=== PATIENT | male | born 1960 | race African-American/Black ===

== ENCOUNTER 2018-12-04 18:30 | Emergency (ER) | payer OTHER ==
[2018-12-04 18:59] VITALS: RESP 18
--- NOTE | 2018-12-04 19:17 | ED ---
General Adult HPI - General Chief complaint: Abdominal Pain Stated complaint: left side pain Time Seen by Provider: 12/04/18 19:00 Source: patient Mode of arrival: ambulatory Limitations: no limitations - History of Present Illness Initial comments: Patient is a 58 year old male who presents from [facility] where he is being treated for cocain and alcohol use, who presents with a CC of left abdominal and flank pain x 2 days. he states that he has had diarrhea since the second day of being at [facility]. he states that at this point, his withdrawal symptoms are better and he doesn't think that is contributing. He cannot identify inciting incident, he denies anyone else similar symptoms, there are no aggravating or alleviating factors. He denies any blood in his stool, and says he is not having any difficulty urinating. He denies any fevers. - Related Data Previous Rx's Medication Instructions Recorded Dicyclomine [Bentyl] 20 mg PO TID PRN #12 tablet 12/04/18 Ibuprofen [Motrin] 800 mg PO TID #20 tab 12/04/18 Allergies Allergy/AdvReac Type Severity Reaction Status Date / Time No Known Allergies Allergy Verified 12/04/18 18:59 Review of Systems ROS Statement: Those systems with pertinent positive or pertinent negative responses have been documented in the HPI. ROS Other: All systems not noted in ROS Statement are negative. Gastrointestinal: Reports: abdominal pain, diarrhea Past Medical History Past Medical History: No Reported History History of Any Multi-Drug Resistant Organisms: None Reported Past Surgical History: No Surgical Hx Reported Past Psychological History: No Psychological Hx Reported Smoking Status: Current every day smoker Past Alcohol Use History: Occasional Past Drug Use History: Cocaine General Exam Limitations: no limitations General appearance: alert, in no apparent distress Head exam: Present: atraumatic, normocephalic Eye exam: Present: normal appearance ENT exam: Present: normal exam Neck exam: Present: normal inspection Respiratory exam: Present: normal lung sounds bilaterally. Absent: respiratory distress, wheezes Cardiovascular Exam: Present: regular rate, normal rhythm GI/Abdominal exam: Present: soft. Absent: distended, tenderness Rectal exam: Present: deferred Extremities exam: Present: normal inspection Back exam: Present: normal inspection, CVA tenderness (L). Absent: CVA tenderness (R) Neurological exam: Present: alert, oriented X3 Psychiatric exam: Present: normal affect, normal mood Skin exam: Present: warm, dry, intact Course Vital Signs 12/04/18 12/04/18 12/04/18 18:55 19:25 20:37 Temperature 97.9 F 98 F Pulse Rate 63 64 60 Respiratory 18 18 18 Rate Blood Pressure 123/78 128/87 140/96 O2 Sat by Pulse 100 95 99 Oximetry Medical Decision Making - Medical Decision Making Patient presents with a chief complaint of left-sided flank and abdominal pain. On initial evaluation, patient is in no acute distress. Patient evaluated basic labs including liver profile and urinalysis. Patient will have a computed tomography scan of the abdomen and pelvis and urinalysis to decide whether with or without contrast. Lab evaluation this patient is unremarkable. Patient was sent for computed tomography scan of the abdomen and pelvis with IV contrast. CT does not show any acute pathology. Her evaluation, patient appears calm and stable. He is stable for discharge. Patient prescribed Bentyl and Motrin. He was instructed to follow up with primary care in 1-2 days, return to the ED if symptoms worsen or change. - Lab Data Result diagrams: 12/04/18 19:20 12/04/18 19:20 Lab Results 12/04/18 12/04/18 12/04/18 Range/Units 19:20 19:20 Unknown WBC 6.5 (3.8-10.6) k/uL RBC 4.53 (4.30-5.90) m/uL Hgb 13.8 (13.0-17.5) gm/dL Hct 43.7 (39.0-53.0) % MCV 96.4 (80.0-100.0) fL MCH 30.4 (25.0-35.0) pg MCHC 31.5 (31.0-37.0) g/dL RDW 15.6 H (11.5-15.5) % Plt Count 245 (150-450) k/uL Neutrophils % 63 % Lymphocytes % 23 % Monocytes % 5 % Eosinophils % 6 % Basophils % 1 % Neutrophils # 4.1 (1.3-7.7) k/uL Lymphocytes # 1.5 (1.0-4.8) k/uL Monocytes # 0.3 (0-1.0) k/uL Eosinophils # 0.4 (0-0.7) k/uL Basophils # 0.1 (0-0.2) k/uL Sodium 142 (137-145) mmol/L Potassium 4.5 (3.5-5.1) mmol/L Chloride 112 H (98-107) mmol/L Carbon Dioxide 25 (22-30) mmol/L Anion Gap 5 mmol/L BUN 18 (9-20) mg/dL Creatinine 1.07 (0.66-1.25) mg/dL Est GFR (CKD-EPI)AfAm 88 (>60 ml/min/1.73 sqM) Est GFR (CKD-EPI)NonAf 76 (>60 ml/min/1.73 sqM) Glucose 105 H (74-99) mg/dL Calcium 9.3 (8.4-10.2) mg/dL Total Bilirubin 0.2 (0.2-1.3) mg/dL AST 24 (17-59) U/L ALT 12 L (21-72) U/L Alkaline Phosphatase 82 (38-126) U/L Total Protein 6.9 (6.3-8.2) g/dL Albumin 3.9 (3.5-5.0) g/dL Urine Color Yellow Urine Appearance Clear (Clear) Urine pH 6.5 (5.0-8.0) Ur Specific [place] 1.023 (1.001-1.035) Urine Protein Negative (Negative) Urine Glucose (UA) Negative (Negative) Urine Ketones Negative (Negative) Urine Blood Negative (Negative) Urine Nitrite Negative (Negative) Urine Bilirubin Negative (Negative) Urine Urobilinogen <2.0 (<2.0) mg/dL Ur Leukocyte Esterase Negative (Negative) Disposition Clinical Impression: Flank pain, Abdominal pain Disposition: HOME SELF-CARE Condition: Good Instructions (If sedation given, give patient instructions): Abdominal Pain (ED) Prescriptions: Dicyclomine [Bentyl] 20 mg PO TID PRN #12 tablet PRN Reason: Diarrhea Ibuprofen [Motrin] 800 mg PO TID #20 tab Is patient prescribed a controlled substance at d/c from ED?: No Referrals: None,Stated [Primary Care Provider] - 1-2 days Karen West MD [STAFF PHYSICIAN] - 1-2 days
[2018-12-04 19:27] LABS: Appearance,Urine Clear (Clear); Bilirubin,Urine Negative (Negative); Blood,Urine Negative (Negative); Color,Urine Yellow; Glucose,Urine (UA) Negative (Negative); Ketones,Urine Negative (Negative); Leukocyte Esterase,Urine Negative (Negative); Nitrite,Urine Negative (Negative); PH, Urine 6.5 (5.0-8.0); Protein,Urine Negative (Negative); Specific Gravity,Urine 1.023 (1.001-1.035); Urobilinogen,Urine <2.0 mg/dL (<2.0)
[2018-12-04 19:27] LABS: Basophils # (A) 0.1 k/uL (0-0.2); Basophils % (A) 1 %; Eosinophils # (A) 0.4 k/uL (0-0.7); Eosinophils % (A) 6 %; HCT 43.7 % (39.0-53.0); HGB 13.8 gm/dL (13.0-17.5); Lymphocytes # (A) 1.5 k/uL (1.0-4.8); Lymphocytes % (A) 23 %; MCH 30.4 pg (25.0-35.0); MCHC 31.5 g/dL (31.0-37.0); MCV 96.4 fL (80.0-100.0); Mean Platelet Volume 6.8; Monocytes # (A) 0.3 k/uL (0-1.0); Monocytes % (A) 5 %; Neutrophils # (A) 4.1 k/uL (1.3-7.7); Neutrophils % (A) 63 %; Platelet Count 245 k/uL (150-450); RBC 4.53 m/uL (4.30-5.90); RDW 15.6 % (11.5-15.5); WBC 6.5 k/uL (3.8-10.6)
[2018-12-04 19:38] LABS: Albumin 3.9 g/dL (3.5-5.0); Calcium 9.3 mg/dL (8.4-10.2); Potassium 4.5 mmol/L (3.5-5.1); Total Bilirubin 0.2 mg/dL (0.2-1.3); Total Protein 6.9 g/dL (6.3-8.2)
[2018-12-04] MEDS ORDERED: DICYCLOMINE 20 MG TAB PO STA (19:54)
[2018-12-04] MEDS ORDERED: KETOROLAC 30 MG/ML 1 ML VIAL IVP STA (19:54)
--- NOTE | 2018-12-04 20:38 | CT ---
EXAMINATION TYPE: CT abdomen pelvis w con DATE OF EXAM: 12/04/2018 COMPARISON: None. HISTORY: LT side abdomen pain, radiating to back. CT DLP: 641 mGycm, Automated Exposure Control for Dose Reduction was Utilized. CONTRAST: CT scan of the abdomen and pelvis is performed without oral but with IV Contrast, patient injected wi th 100 mL of Isovue 300. FINDINGS: LUNG BASES: Dependent atelectasis is present bilaterally. LIVER/GB: Contracted gallbladder. PANCREAS: No significant abnormality is seen. SPLEEN: No significant abnormality is seen. ADRENALS: No significant abnormality is seen. KIDNEYS: A simple appearing 3.3 cm cyst laterally lower pole of the left kidney is noted axial image 34 series 301. Scattered pelvic phleboliths are present bilaterally. BOWEL: Patient has little intra-abdominal fat along with lack of enteric contrast makes evaluation of bowel suboptimal. There is no suspicious small or large bowel dilatation. Appendix WITHIN normal lewis its from base of cecum. PROSTATE/SEMINAL VESICLES: No gross abnormality seen. LYMPH NODES: No greater than 1cm abdominal or pelvic lymph nodes are appreciated. OSSEOUS STRUCTURES: Spine is straightened with multilevel disc desiccation L3-L4 and L4-L5 levels wit h mild disc space narrowing and moderate anterior spurring. There is moderate to advanced disc space narrowing with endplate sclerosis and moderate spurring L5-S1 level. There is mild narrowing and spur ring in both hip joints. Facet arthropathy mid to lower lumbar spine is present. OTHER: Mild to moderate calcified plaque of the aorta extends into branch vessels. IMPRESSION: No significant acute finding is seen to account for patient's clinical symptoms of left- sided pain into back.
[2018-12-04 20:39] VITALS: BP 140/96; PULSE 60; TEMP 98
== END 2018-12-04 21:10 | disposition home or self-care (01) ==
LOC: EC 18:30
DX: R10.9 Unspecified abdominal pain (principal); R19.7 Diarrhea, unspecified; F14.90 Cocaine use, unspecified, uncomplicated; F17.200 Nicotine dependence, unspecified, uncomplicated; Z72.89 Other problems related to lifestyle
CPT/HCPCS: 36415; 80053; 85025; 81003; 74177; 99284; 96374; J1885; Q9967